=== PATIENT | female | born 1975 | race African-American/Black ===

== ENCOUNTER 2016-12-25 23:22 | Emergency (ER) | payer BC, OTHER ==
[~2016-12-25 23:22] MED LIST: FURO-69 PO; FURO20TA3 PO; NAPR500T3 PO; NORG1TAB6 PO; SERT100T PO
[2016-12-26] MEDS ORDERED: NITROGLYCERIN SUBLINGUAL 0.4 MG BOTTLE OF 25. SL PRN
[2016-12-26 00:12] LABS: BASO # 0.1 x10^3/uL (0.0-0.2); BASO % 1 % (0-3); EOS % 4 % (0-3); HEMATOCRIT 33.1 % (36.0-47.0); HEMOGLOBIN 10.2 g/dL (12.0-15.5); LYMPH # 4.8 x10^3/uL (1.0-4.8); LYMPH % 41 % (24-48); MEAN CORPUSCULAR HEMOGLOBIN 22 pg (25-35); MEAN CORPUSCULAR HGB CONC 31 g/dL (31-37); MEAN CORPUSCULAR VOLUME 72 fL (79-100); MONO % 8 % (0-9); NEUT % 48 % (31-73); PLATELET COUNT 332 x10^3/uL (140-400); RED BLOOD COUNT 4.61 x10^6/uL (3.50-5.40); RED CELL DISTRIBUTION WIDTH 17.6 % (11.5-14.5); WHITE BLOOD COUNT 11.8 x10^3/uL (4.0-11.0)
[2016-12-26] MEDS ORDERED: DIAZEPAM 5 MG TABLET PO ONE (00:15)
[2016-12-26] MEDS ORDERED: ASPIRIN 81 MG TAB.CHEW PO ONE (00:15)
[2016-12-26 00:34] LABS: CALCIUM 8.8 mg/dL (8.5-10.1); CREATININE 0.9 mg/dL (0.6-1.0); GFR 84.3; POTASSIUM 3.8 mmol/L (3.5-5.1)
[2016-12-26 01:10] LABS: PLT ESTIMATE ADEQUATE (ADEQUATE)
[2016-12-26 01:11] LABS: ANISOCYTOSIS SLIGHT; HYPOCHROMIA MOD; MICROCYTOSIS MOD
[2016-12-26 02:42] VITALS: BP 118/57
--- NOTE | 2016-12-26 02:55 | PHYS DOC ---
Past Medical History Past Medical History: Anxiety, Hypertension, Other Additional Past Medical Histor: PCOS Past Surgical History: Cholecystectomy, Hysterectomy Alcohol Use: Occasionally Drug Use: None Adult General Chief Complaint Chief Complaint: CHEST PAIN HPI HPI Patient is a 41 year old female who presents with chest discomfort. Patient reports she lies down this evening, when she started having left-sided chest pressure accompanied by heaviness of left upper extremity and shortness of breath. No clear inciting or mitigating factors. She has not taken anything for symptoms at home. No prior similar episodes. Review of Systems Review of Systems Constitutional: Denies fever or chills Eyes: Denies change in visual acuity or eye pain HENT: Denies nasal congestion or sore throat Respiratory: Shortness of breath. Denies cough Cardiovascular: L side chest pain radiating to LUE GI: Denies abdominal pain, nausea, vomiting, bloody stools or diarrhea : Denies dysuria or hematuria Musculoskeletal: Denies back pain Integument: Denies rash or skin lesions Neurologic: Denies headache, focal weakness or sensory changes Current Medications Current Medications Current Medications Medications (Trade) Dose Ordered Sig/Mike Start Time Stop Time Status Last Admin Dose Admin Aspirin (Children'S Aspirin) 324 mg 1X ONCE 12/26/16 00:15 12/26/16 00:16 DC 12/26/16 00:27 324 MG Diazepam (Valium) 5 mg 1X ONCE 12/26/16 00:15 12/26/16 00:16 DC 12/26/16 00:27 5 MG Nitroglycerin (Nitrostat) 0.4 mg PRN Q5MIN PRN 12/26/16 00:00 12/26/16 03:20 DC 12/26/16 00:28 0.4 MG Allergies Allergies Allergies Coded Allergies Type Severity Reaction Last Updated Verified AL Inhibitors Allergy Severe COUGH AND NUMBNESS IN ARMS 05/10/15 No hydrocodone Allergy Intermediate ITCHING AND NAUSEA 05/10/15 No Physical Exam Physical Exam Constitutional: Well developed, well nourished, no acute distress, non-toxic appearance HENT: Normocephalic, atraumatic, bilateral external ears normal Eyes: EOMI, conjunctiva normal, no discharge Neck: Normal range of motion, no stridor Cardiovascular: Heart rate normal, regular rhythm, no murmur Lungs & Thorax: Bilateral breath sounds clear to auscultation Abdomen: Bowel sounds normal, soft, non-distended, no TTP Skin: Warm, dry, no erythema, no rash Extremities: No obvious deformity, no edema Neurologic: Alert and oriented X 3, no gross deficits noted Psychologic: Affect normal, judgement normal, mood normal Current Patient Data Vital Signs Vital Signs Date Time Temp Pulse Resp B/P Pulse Ox O2 Delivery O2 Flow Rate FiO2 12/26/16 02:42 69 118/57 97 Room Air 12/25/16 23:25 97.7 16 97.7 Lab Values Laboratory Tests Test 12/26/16 00:00 12/26/16 02:08 White Blood Count 11.8x10^3/uL (4.0-11.0) H Red Blood Count 4.61x10^6/uL (3.50-5.40) Hemoglobin 10.2g/dL (12.0-15.5) L Hematocrit 33.1% (36.0-47.0) L Mean Corpuscular Volume 72fL (79-100) L Mean Corpuscular Hemoglobin 22pg (25-35) L Mean Corpuscular Hemoglobin Concent 31g/dL (31-37) Red Cell Distribution Width 17.6% (11.5-14.5) H Platelet Count 332x10^3/uL (140-400) Neutrophils (%) (Auto) 48% (31-73) Lymphocytes (%) (Auto) 41% (24-48) Monocytes (%) (Auto) 8% (0-9) Eosinophils (%) (Auto) 4% (0-3) H Basophils (%) (Auto) 1% (0-3) Neutrophils # (Auto) 5.6x10^3uL (1.8-7.7) Lymphocytes # (Auto) 4.8x10^3/uL (1.0-4.8) Monocytes # (Auto) 0.9x10^3/uL (0.0-1.1) Eosinophils # (Auto) 0.4x10^3/uL (0.0-0.7) Basophils # (Auto) 0.1x10^3/uL (0.0-0.2) Platelet Estimate Adequate (ADEQUATE) Hypochromasia Mod Anisocytosis Slight Microcytosis Mod Sodium Level 142mmol/L (136-145) Potassium Level 3.8mmol/L (3.5-5.1) Chloride Level 107mmol/L (98-107) Carbon Dioxide Level 27mmol/L (21-32) Anion Gap 8 (6-14) Blood Urea Nitrogen 14mg/dL (7-20) Creatinine 0.9mg/dL (0.6-1.0) Estimated GFR (Cockcroft-Gault) 84.3 Glucose Level 120mg/dL (70-99) H Calcium Level 8.8mg/dL (8.5-10.1) Troponin I Quantitative < 0.017ng/mL (0.000-0.055) < 0.017ng/mL (0.000-0.055) Laboratory Tests 12/26/16 00:00 Laboratory Tests 12/26/16 00:00 EKG EKG EKG (my read): sinus rhythm, rate 76, RAD, intervals wnl, no acute ST/T changes Radiology/Procedures Radiology/Procedures CXR (my read): No acute abnormality Course & Med Decision Making Course & Med Decision Making Pertinent Labs and Imaging studies reviewed. (See chart for details) Patient is 41-year-old female who presents with chest pain and shortness of breath. Relatively low suspicion for ACS, would consider process such as as reflux more likely. Will check EKG, chest x-ray, labs to evaluate. Aspirin and nitroglycerin ordered. Labs notable for minimal leukocytosis. EKG and imaging results as above. Troponin within normal limits. Given that patient is low risk per Heart score, after discussion with patient decision was made to obtain secondary troponin level after sometime in ED. This repeat troponin was also within normal limits. Discussed with patient, who is feeling better. Will discharge home with instructions for close follow-up and strict return precautions. Dragon Disclaimer Dragon Disclaimer This electronic medical record was generated, in whole or in part, using a voice recognition dictation system. Departure Departure Impression: Primary Impression: Chest discomfort Disposition: 01 HOME, SELF-CARE Condition: IMPROVED Referrals: REGULO LÓPEZ (PCP) Patient Instructions: Chest Pain (Nonspecific) Additional Instructions: Thank you for allowing us to provide care today in the Emergency Department. Schedule a follow up appointment with your primary care doctor. Return promptly to the Emergency Department if you develop any new or concerning symptoms. SCARLET TABARES MD Dec 26, 2016 02:54
--- NOTE | 2016-12-26 06:29 | EKG ---
[facility] [address] [place] [address] Test Date: 2016-12-25 Test Time: 23:27:01 Pat Name: STACIA DELACRUZ Department: Room: Gender: F Dental Office Manager: : 1975 Requested By: SCARLET TABARES Order Number: [id number] Reading MD: Measurements Intervals [place] Rate: 76 P: 141 HI: 172 QRS: 152 QRSD: 84 T: 168 QT: 372 QTc: 423 Interpretive Statements SUPRAVENTRICULAR RHYTHM ABNORMAL RIGHT AXIS DEVIATION QRS(T) CONTOUR ABNORMALITY CONSISTENT WITH HIGH LATERAL INFARCT AGE UNDETERMINED T ABNORMALITY IN INFERIOR LEADS ABNORMAL ECG RI6.01 No previous ECG available for comparison
--- NOTE | 2016-12-26 07:32 | RAD ---
Indication chest pressure. Shortness of breath. PA and lateral views of the chest were obtained. Comparison is made to an examination 05/01/2015. The heart and pulmonary vessels appear normal. The lungs are clear. There is not been a significant change compared to the previous exam. IMPRESSION: No acute or focal process. No significant change
== END 2016-12-26 03:13 | disposition home or self-care (01) ==
LOC: ER 23:22
DX: R07.89 Other chest pain (principal); R06.02 Shortness of breath; E28.2 Polycystic ovarian syndrome; F41.9 Anxiety disorder, unspecified; I10 Essential (primary) hypertension; Z90.710 Acquired absence of both cervix and uterus; Z90.49 Acquired absence of other specified parts of digestive tract; Z88.5 Allergy status to narcotic agent; Z88.8 Allergy status to other drugs, medicaments and biological substances
CPT/HCPCS: 36415; 71020; 80048; 84484; 85007; 85027; 93005; 99285-25

== ENCOUNTER → 2017-02-03 | Outpatient (CLI) | payer OTHER ==
[~2017-02-03] MED LIST changes: +CONTRAST GIVEN MC PRN; +IOHEXOL 300 MG/ML 75 ML VIAL IV ONE
--- NOTE | 2017-02-03 17:52 | RAD ---
CT of the face with contrast, 02/03/2017: History: Left facial swelling Multidetector CT imaging was performed following an IV bolus injection of iodinated contrast material. No mass or abnormal fluid collection is seen in the cheek regions. The parotid glands are symmetric. A couple of small lymph node type densities are seen within and adjacent to the parotid glands. The submandibular glands show no abnormality. There are small upper cervical and submandibular lymph nodes without evidence of pathologic enlargement. The paranasal sinuses are clear. The orbital contents are unremarkable. No fracture or destructive bony lesion is seen. The tonsils are enlarged in a symmetric pattern. No abnormal fluid collection is seen to suggest abscess. IMPRESSION: 1. No acute facial abnormality is detected. 2. Incidental note is made of symmetric bilateral tonsillar enlargement. PQRS Compliance Statement: One or more of the following individualized dose reduction techniques were utilized for this examination: 1. Automated exposure control 2. Adjustment of the mA and/or kV according to patient size 3. Use of iterative reconstruction technique
== END | disposition home or self-care (01) ==
LOC: CT 10:37
PROVIDERS: ATTEND Family Medicine
DX: J35.1 Hypertrophy of tonsils (principal)
CPT/HCPCS: 70487; Q9967

== ENCOUNTER 2017-07-12 06:12 | Inpatient (IN) | payer OTHER ==
[~2017-07-12] VITALS: Ht 163.8 cm; Wt 122.0 kg
[~2017-07-12 06:12] MED LIST changes: -CONTRAST GIVEN MC PRN; -IOHEXOL 300 MG/ML 75 ML VIAL IV ONE; -NAPR500T3 PO; +NAPR500T4 PO
--- NOTE | 2017-07-12 06:17 | PHYS DOC ---
Past Medical History Past Medical History: Anxiety, Hypertension, Other Additional Past Medical Histor: PCOS Past Surgical History: Cholecystectomy, Hysterectomy Alcohol Use: Occasionally Drug Use: None Adult General Chief Complaint Chief Complaint: Neck Pain HPI HPI Patient is a 41 year old -[place] female who presents with left sided chest and shoulder pain. She states it started yesterday is been constant she's been taking 800 mg of Motrin at home and took 2 tablets this morning prior to arrival. She states the pain is constant nothing makes it better or worse. She states moving her shoulder does not change her pain at all. She denies any shortness of breath associated with this. She points to her left anterior chest wall states the pains there radiates into her shoulder and then she states up into her neck little bit. She denies any nausea, shortness of breath. She denies any history of coronary disease. She denies any family history of coronary disease in her mom or dad. She denies tobacco abuse. She states she has a past medical history of dyslipidemia is on a medicine for this. Review of Systems Review of Systems Constitutional: Denies fever or chills [] Eyes: Denies change in visual acuity, redness, or eye pain [] HENT: Denies nasal congestion or sore throat [] Respiratory: Denies cough or shortness of breath [] Cardiovascular: No additional information not addressed in HPI [] GI: Denies abdominal pain, nausea, vomiting, bloody stools or diarrhea [] : Denies dysuria or hematuria [] Musculoskeletal: Denies back pain or joint pain [] Integument: Denies rash or skin lesions [] Neurologic: Denies headache, focal weakness or sensory changes [] Endocrine: Denies polyuria or polydipsia [] Current Medications Current Medications Current Medications Medications (Trade) Dose Ordered Sig/[facility] Start Time Stop Time Status Last Admin Dose Admin Aspirin (Nikita Aspirin) 325 mg 1X ONCE 07/12/17 08:30 07/12/17 08:31 DC 07/12/17 08:28 325 MG Diazepam (Valium) 2.5 mg 1X ONCE 07/12/17 08:30 07/12/17 08:33 DC 07/12/17 08:30 2.5 MG Nitroglycerin (Nitrostat) 0.4 mg PRN Q5MIN PRN 07/12/17 06:30 07/13/17 06:29 Allergies Allergies Allergies Coded Allergies Type Severity Reaction Last Updated Verified AL Inhibitors Allergy Severe COUGH AND NUMBNESS IN ARMS 05/10/15 No hydrocodone Allergy Intermediate ITCHING AND NAUSEA 05/10/15 No Physical Exam Physical Exam Constitutional: Well developed, well nourished, no acute distress, non-toxic appearance. [] HENT: Normocephalic, atraumatic, bilateral external ears normal, oropharynx moist, no oral exudates, nose normal. [] Eyes: PERRLA, EOMI, conjunctiva normal, no discharge. [] Neck: Normal range of motion, no tenderness, supple, no stridor. [] Cardiovascular:Heart rate regular rhythm, no murmur [] Lungs & Thorax: Bilateral breath sounds clear to auscultation [] Abdomen: Bowel sounds normal, soft, no tenderness, no masses, no pulsatile masses. [] Skin: Warm, dry, no erythema, no rash. [] Back: No tenderness, no CVA tenderness. [] Extremities: No tenderness, no cyanosis, no clubbing, ROM intact, no edema. [] Neurologic: Alert and oriented X 3, normal motor function, normal sensory function, no focal deficits noted. [] Psychologic: Affect normal, judgement normal, mood normal. [] Current Patient Data Vital Signs Vital Signs Date Time Temp Pulse Resp B/P (MAP) Pulse Ox O2 Delivery O2 Flow Rate FiO2 07/12/17 08:03 67 19 152/91 (111) 98 Room Air 07/12/17 06:46 97.7 97.7 Lab Values Laboratory Tests Test 07/12/17 06:41 07/12/17 07:10 07/12/17 07:25 White Blood Count 11.0 x10^3/uL (4.0-11.0) Red Blood Count 4.81 x10^6/uL (3.50-5.40) Hemoglobin 11.4 g/dL (12.0-15.5) L Hematocrit 35.9 % (36.0-47.0) L Mean Corpuscular Volume 75 fL (79-100) L Mean Corpuscular Hemoglobin 24 pg (25-35) L Mean Corpuscular Hemoglobin Concent 32 g/dL (31-37) Red Cell Distribution Width 16.3 % (11.5-14.5) H Platelet Count 360 x10^3/uL (140-400) Neutrophils (%) (Auto) 60 % (31-73) Lymphocytes (%) (Auto) 28 % (24-48) Monocytes (%) (Auto) 7 % (0-9) Eosinophils (%) (Auto) 4 % (0-3) H Basophils (%) (Auto) 1 % (0-3) Neutrophils # (Auto) 6.6 x10^3uL (1.8-7.7) Lymphocytes # (Auto) 3.1 x10^3/uL (1.0-4.8) Monocytes # (Auto) 0.8 x10^3/uL (0.0-1.1) Eosinophils # (Auto) 0.4 x10^3/uL (0.0-0.7) Basophils # (Auto) 0.1 x10^3/uL (0.0-0.2) Urine Collection Type Unknown Urine Color Yellow Urine Clarity Clear Urine pH 6.5 Urine Specific [place] >=1.030 Urine Protein Negative mg/dL (NEG-TRACE) Urine Glucose (UA) Negative mg/dL (NEG) Urine Ketones (Stick) Negative mg/dL (NEG) Urine Blood Negative (NEG) Urine Nitrite Negative (NEG) Urine Bilirubin Negative (NEG) Urine Urobilinogen Dipstick 1.0 mg/dL (0.2 mg/dL) Urine Leukocyte Esterase Negative (NEG) Urine RBC 0 /HPF (0-2) Urine WBC Occ /HPF (0-4) Urine Squamous Epithelial Cells Mod /LPF Urine Bacteria 0 /HPF (0-FEW) Urine Mucus Mod /LPF Urine Opiates Screen Neg (NEG) Urine Methadone Screen Neg (NEG) Urine Barbiturates Neg (NEG) Urine Phencyclidine Screen Neg (NEG) Urine Amphetamine/Methamphetamine Neg (NEG) Urine Benzodiazepines Screen Neg (NEG) Urine Cocaine Screen Neg (NEG) Urine Cannabinoids Screen Neg (NEG) Urine Ethyl Alcohol Neg (NEG) Prothrombin Time 12.5 SEC (11.7-14.0) Prothrombin Time INR 1.0 (0.8-1.1) Sodium Level 142 mmol/L (136-145) Potassium Level 3.9 mmol/L (3.5-5.1) Chloride Level 106 mmol/L (98-107) Carbon Dioxide Level 27 mmol/L (21-32) Anion Gap 9 (6-14) Blood Urea Nitrogen 15 mg/dL (7-20) Creatinine 0.8 mg/dL (0.6-1.0) Estimated GFR (Cockcroft-Gault) 96.6 Glucose Level 122 mg/dL (70-99) H Calcium Level 8.7 mg/dL (8.5-10.1) Magnesium Level 2.0 mg/dL (1.8-2.4) Total Bilirubin 0.1 mg/dL (0.2-1.0) L Direct Bilirubin 0.0 mg/dL (0.0-0.2) Aspartate Amino Transferase (AST) 11 U/L (15-37) L Alanine Aminotransferase (ALT) 16 U/L (14-59) Alkaline Phosphatase 99 U/L (46-116) Creatine Kinase 92 U/L (26-192) Creatine Kinase MB (Mass) 0.7 ng/mL (0.0-3.6) Creatine Kinase MB Relative Index 0.8 % (0-4) Troponin I Quantitative < 0.017 ng/mL (0.000-0.055) [id number] Natriuretic Peptide 65 pg/mL (0-124) Total Protein 7.5 g/dL (6.4-8.2) Albumin 3.1 g/dL (3.4-5.0) L Lipase 110 U/L (73-393) Serum Test, Qualitative Negative (NEG) Laboratory Tests 07/12/17 06:41 Laboratory Tests 07/12/17 07:25 EKG EKG EKG shows sinus rhythm with a rate of [address] elevations, T-wave inversions noted in lead 3, normal axis, QTC 437 will sinus, as interpreted by me. Radiology/Procedures Radiology/Procedures [facility] [address] [place] [address] IMAGING REPORT Signed PATIENT: STACIA DELACRUZ ACCOUNT: [id number] : 1975 LOCATION: ER AGE: 41 SEX: F EXAM STATUS: REG ER ORD. PHYSICIAN: ALY COHEN MD REASON: chest pain-NOT READY AT 6:29 PROCEDURE: PORTABLE CHEST 1V Portable chest, 07/12/2017: History: Chest pain Comparison is made to a study from 12/26/2016. The heart is at the upper limits of normal in size. The pulmonary vascularity is normal. No pulmonary infiltrates are seen. There is no evidence of pleural fluid. IMPRESSION: No acute cardiopulmonary abnormality is detected. DICTATED and SIGNED BY: RAMA BENNETT MD DATE: 07/12/17 0731 CC: MACKENZIE LU MD; ALY COHEN MD ~ Impressions: Chest pain Dyslipidemia Course & Med Decision Making Course & Med Decision Making Pertinent Labs and Imaging studies reviewed. (See chart for details) EKG has T-wave inversions in lead 3, previous EKG had T-wave inversions in lead 2 and aVL which are not there at this time. Patient does have dyslipidemia. Will admit for chest pain rule out and likely a stress test but will defer to cardiology. Patient has received full dose aspirin. She is agreeable plans in stable condition this time. We will try Valium 2.5 mg IV 1 to this isn't really some of her discomfort in her left shoulder. 325mg aspirin has been ordered. Patient's being admitted to Dr. Pitts with cardiology consultation in stable condition this time. Interim orders have been written. Dragon Disclaimer Dragon Disclaimer This electronic medical record was generated, in whole or in part, using a voice recognition dictation system. Departure Departure Impression: Primary Impression: Chest pain Disposition: 09 ADMITTED INPATIENT Admitting Physician: Other Condition: STABLE Referrals: REGULO LÓPEZ (PCP) Problem Qualifiers Primary Impression: Chest pain Chest pain type: unspecified Qualified Codes: R07.9 - Chest pain, unspecified ALY COHEN MD Jul 12, 2017 06:17
[2017-07-12] MEDS ORDERED: NITROGLYCERIN SUBLINGUAL 0.4 MG BOTTLE OF 25. SL PRN (06:30)
[2017-07-12 06:58] LABS: BASO # 0.1 x10^3/uL (0.0-0.2); BASO % 1 % (0-3); EOS % 4 % (0-3); HEMATOCRIT 35.9 % (36.0-47.0); HEMOGLOBIN 11.4 g/dL (12.0-15.5); LYMPH # 3.1 x10^3/uL (1.0-4.8); LYMPH % 28 % (24-48); MEAN CORPUSCULAR HEMOGLOBIN 24 pg (25-35); MEAN CORPUSCULAR HGB CONC 32 g/dL (31-37); MEAN CORPUSCULAR VOLUME 75 fL (79-100); MONO % 7 % (0-9); NEUT % 60 % (31-73); PLATELET COUNT 360 x10^3/uL (140-400); RED BLOOD COUNT 4.81 x10^6/uL (3.50-5.40); RED CELL DISTRIBUTION WIDTH 16.3 % (11.5-14.5)
--- NOTE | 2017-07-12 07:34 | RAD ---
Portable chest, 07/12/2017: History: Chest pain Comparison is made to a study from 12/26/2016. The heart is at the upper limits of normal in size. The pulmonary vascularity is normal. No pulmonary infiltrates are seen. There is no evidence of pleural fluid. IMPRESSION: No acute cardiopulmonary abnormality is detected.
[2017-07-12 08:10] LABS: BILIRUBIN,URINE NEGATIVE (NEG); GLUCOSE,URINE NEGATIVE (NEG); NITRITE,URINE NEGATIVE (NEG); PH,URINE 6.5; PROTEIN,URINE NEGATIVE (NEG-TRACE)
[2017-07-12 08:15] LABS: ANION GAP 9 (6-14); BLOOD UREA NITROGEN 15 mg/dL (7-20); CALCIUM 8.7 mg/dL (8.5-10.1); CARBON DIOXIDE 27 mmol/L (21-32); CHLORIDE 106 mmol/L (98-107); CREATININE 0.8 mg/dL (0.6-1.0); GFR 96.6; GLUCOSE 122 mg/dL (70-99); POTASSIUM 3.9 mmol/L (3.5-5.1); SODIUM 142 mmol/L (136-145)
[2017-07-12 08:16] LABS: BARBITURATES NEG (NEG); BENZODIAZEPINES NEG (NEG); CANNABINOIDS NEG (NEG); COCAINE NEG (NEG); METHADONE NEG (NEG); OPIATES NEG (NEG); PHENCYCLIDINE NEG (NEG)
[2017-07-12 08:21] LABS: ALBUMIN 3.1 g/dL (3.4-5.0); ALK PHOS 99 U/L (46-116); ALT (SGPT) 16 U/L (14-59); AST (SGOT) 11 U/L (15-37); TOTAL BILIRUBIN 0.1 mg/dL (0.2-1.0); TOTAL PROTEIN 7.5 g/dL (6.4-8.2)
[2017-07-12] MEDS ORDERED: ASPIRIN 325 MG TABLET PO ONE (08:30)
[2017-07-12 08:31] LABS: CKMB MASS 0.7 ng/mL (0.0-3.6)
[2017-07-12 08:32] LABS: PROTHROMBIN TIME PATIENT 12.5 SEC (11.7-14.0)
[2017-07-12 08:36] LABS: BACTERIA,URINE 0 /HPF (0-FEW); RBC,URINE 0 /HPF (0-2); SQUAMOUS EPITHELIAL CELL,UR MOD /LPF; WBC,URINE OCC /HPF (0-4)
[2017-07-12 08:39] LABS: NEG OBC SER NEG; POS OBC SER POS
[2017-07-12] MEDS ORDERED: MORPHINE SULFATE 2 MG/ML DISP.SYRIN. IV PRN (09:00)
[2017-07-12] MEDS ORDERED: ONDANSETRON PF 4 MG/2 ML VIAL. IV PRN (09:00)
[2017-07-12 09:30] VITALS: BP 152/91
[2017-07-12] MEDS ORDERED: SPIR50TA2 PO (09:45)
[2017-07-12] MEDS ORDERED: SUMA50TA4 PO (09:45)
[2017-07-12] MEDS ORDERED: METF500T4 PO (09:45)
[2017-07-12] MEDS ORDERED: OMEP40CA5 PO (09:45)
[2017-07-12] MEDS ORDERED: FLUT16SP NAS (09:45)
[2017-07-12] MEDS ORDERED: GABA300C8 PO (09:45)
[2017-07-12] MEDS ORDERED: DICL25TA PO (09:45)
[2017-07-12] MEDS ORDERED: AMLO5TAB2 PO (09:45)
[2017-07-12] MEDS ORDERED: TOPI50TA8 PO (09:45)
[2017-07-12] MEDS ORDERED: SIMV20TA3 PO (09:45)
[2017-07-12 09:48] LABS: DIRECT BILIRUBIN < 0.1 mg/dL (0.0-0.2)
[2017-07-12] MEDS ORDERED: diphenhydrAMINE HCL 25 MG CAPSULE PO PRN (10:15)
[2017-07-12] MEDS ORDERED: INFLUENZA VAX SCREEN BY RX. MC PRN (10:45)
[2017-07-12 11:00] VITALS: BP 135/72
[2017-07-12] MEDS ORDERED: SUMAtriptan SUCCINATE 25 MG TABLET PO PRN (11:00)
[2017-07-12] MEDS ORDERED: FLU VACC QS2017-18 (36MOS+)/PF 0.5 ML SYRINGE. VAX IM ONE (11:00)
[2017-07-12] MEDS: ENOXAPARIN 40 MG/0.4 ML SYRINGE. SQ SCH ×2 (11:00→20:08)
--- NOTE | 2017-07-12 11:25 | PDOC2 ---
CARDIOLOGY CONSULT NOTE CHEIF COMPLAINT: Chest pain Problems: HPI: 41 y.o female with pmhx as noted below presenting to the hospital with chest pain. She was seen several months ago in ER with complaints of pain. No acute pathology and discharged home. At baseline she is quite sedentary. No chest pain or dypsnea. Last night had some sharp left sided pain. This persisted and presented to ER. Today has pain with movement. No other associated factors. PMHX: HTN PCOS DLP SOCHX: No alcohol, tob or illicit drug use FAMHX: No early cAD CURRENT MEDS: Current Medications Medications (Trade) Dose Ordered Sig/Mike Start Time Stop Time Status Last Admin Dose Admin Amlodipine Besylate (Norvasc) 5 mg DAILY 07/12/17 11:00 Aspirin (Nikita Aspirin) 325 mg 1X ONCE 07/12/17 08:30 07/12/17 08:31 DC 07/12/17 08:28 325 MG Atorvastatin Calcium (Lipitor) 10 mg QHS 07/12/17 21:00 Diazepam (Valium) 2.5 mg 1X ONCE 07/12/17 08:30 07/12/17 08:33 DC 07/12/17 08:30 2.5 MG Diphenhydramine HCl (Benadryl) 25 mg PRN Q4HRS PRN 07/12/17 10:15 07/12/17 10:14 25 MG Enoxaparin Sodium (Lovenox 40mg Syringe) 40 mg BID 07/12/17 11:00 Fluticasone Propionate (Flonase) 2 spray DAILY 07/12/17 11:00 Gabapentin (Neurontin) 300 mg TID 07/12/17 14:00 Indomethacin (Indocin) 50 mg TID 07/12/17 14:00 Influenza Virus Vaccine Quadrival (Fluarix Quad [id number] Syringe) 0.5 ml ONCE ONCE 07/12/17 11:00 07/12/17 11:01 DC Info (Do NOT chart on this placeholder) 1 each PRN 1X PRN 07/12/17 10:45 UNV Insulin Aspart (NovoLOG) 0-12 UNITS QIDACHS 07/12/17 11:30 Morphine Sulfate 2 mg PRN Q2HR PRN 07/12/17 09:00 07/13/17 08:59 07/12/17 09:55 2 MG Nitroglycerin (Nitrostat) 0.4 mg PRN Q5MIN PRN 07/12/17 06:30 07/13/17 06:29 Ondansetron HCl (Zofran) 4 mg PRN Q8HRS PRN 07/12/17 09:00 07/13/17 08:59 07/12/17 10:41 4 MG Pantoprazole Sodium (Protonix) 40 mg DAILYAC 07/12/17 11:00 Spironolactone (Aldactone) 50 mg BID 07/12/17 11:00 Sumatriptan Succinate (Imitrex) 50 mg PRN Q2HR PRN 07/12/17 11:00 Topiramate (Topamax) 50 mg BID 07/12/17 11:00 ALLERGIES: Allergies Coded Allergies Type Severity Reaction Last Updated Verified AL Inhibitors Allergy Severe COUGH AND NUMBNESS IN ARMS 05/10/15 No hydrocodone Allergy Intermediate ITCHING AND NAUSEA 05/10/15 No ROS: Negative for 07/18 systems reviewed unless otherwise noted above in HPI. PHYSICAL EXAM: Vital Signs: Vital Signs Date Time Temp Pulse Resp B/P (MAP) Pulse Ox O2 Delivery O2 Flow Rate FiO2 07/12/17 10:59 Room Air 07/12/17 09:55 16 98 07/12/17 09:30 97.7 67 152/91 (111) 97.7 Physical Exam: GEN.: No apparent distress. Alert and oriented. HEENT: Head is normocephalic, atraumatic NECK: Supple. LUNGS: Clear to auscultation. HEART: RRR, S1, S2 present. Peripheral pulses intact ABDOMEN: Soft, nontender. Positive bowel sounds. EXTREMITIES: Without any cyanosis. NEUROLOGIC: Normal speech, normal tone PSYCHIATRIC: Normal affect, normal mood. SKIN: No ulcerations DIAGNOSTIC TESTING: Trop negative EKG unremarkable. Lab Laboratory Tests Test 07/12/17 06:41 07/12/17 07:10 07/12/17 07:25 White Blood Count 11.0 x10^3/uL (4.0-11.0) Red Blood Count 4.81 x10^6/uL (3.50-5.40) Hemoglobin 11.4 g/dL (12.0-15.5) L Hematocrit 35.9 % (36.0-47.0) L Mean Corpuscular Volume 75 fL (79-100) L Mean Corpuscular Hemoglobin 24 pg (25-35) L Mean Corpuscular Hemoglobin Concent 32 g/dL (31-37) Red Cell Distribution Width 16.3 % (11.5-14.5) H Platelet Count 360 x10^3/uL (140-400) Neutrophils (%) (Auto) 60 % (31-73) Lymphocytes (%) (Auto) 28 % (24-48) Monocytes (%) (Auto) 7 % (0-9) Eosinophils (%) (Auto) 4 % (0-3) H Basophils (%) (Auto) 1 % (0-3) Neutrophils # (Auto) 6.6 x10^3uL (1.8-7.7) Lymphocytes # (Auto) 3.1 x10^3/uL (1.0-4.8) Monocytes # (Auto) 0.8 x10^3/uL (0.0-1.1) Eosinophils # (Auto) 0.4 x10^3/uL (0.0-0.7) Basophils # (Auto) 0.1 x10^3/uL (0.0-0.2) Urine Collection Type Unknown Urine Color Yellow Urine Clarity Clear Urine pH 6.5 Urine Specific [place] >=1.030 Urine Protein Negative mg/dL (NEG-TRACE) Urine Glucose (UA) Negative mg/dL (NEG) Urine Ketones (Stick) Negative mg/dL (NEG) Urine Blood Negative (NEG) Urine Nitrite Negative (NEG) Urine Bilirubin Negative (NEG) Urine Urobilinogen Dipstick 1.0 mg/dL (0.2 mg/dL) Urine Leukocyte Esterase Negative (NEG) Urine RBC 0 /HPF (0-2) Urine WBC Occ /HPF (0-4) Urine Squamous Epithelial Cells Mod /LPF Urine Bacteria 0 /HPF (0-FEW) Urine Mucus Mod /LPF Urine Opiates Screen Neg (NEG) Urine Methadone Screen Neg (NEG) Urine Barbiturates Neg (NEG) Urine Phencyclidine Screen Neg (NEG) Urine Amphetamine/Methamphetamine Neg (NEG) Urine Benzodiazepines Screen Neg (NEG) Urine Cocaine Screen Neg (NEG) Urine Cannabinoids Screen Neg (NEG) Urine Ethyl Alcohol Neg (NEG) Prothrombin Time 12.5 SEC (11.7-14.0) Prothromb Time International Ratio 1.0 (0.8-1.1) Sodium Level 142 mmol/L (136-145) Potassium Level 3.9 mmol/L (3.5-5.1) Chloride Level 106 mmol/L (98-107) Carbon Dioxide Level 27 mmol/L (21-32) Anion Gap 9 (6-14) Blood Urea Nitrogen 15 mg/dL (7-20) Creatinine 0.8 mg/dL (0.6-1.0) Estimated GFR (Cockcroft-Gault) 96.6 Glucose Level 122 mg/dL (70-99) H Calcium Level 8.7 mg/dL (8.5-10.1) Total Bilirubin 0.1 mg/dL (0.2-1.0) L Direct Bilirubin < 0.1 mg/dL (0.0-0.2) Aspartate Amino Transf (AST/SGOT) 11 U/L (15-37) L Alkaline Phosphatase 99 U/L (46-116) Creatine Kinase 92 U/L (26-192) Creatine Kinase MB (Mass) 0.7 ng/mL (0.0-3.6) Creatine Kinase MB Relative Index 0.8 % (0-4) Total Protein 7.5 g/dL (6.4-8.2) Albumin 3.1 g/dL (3.4-5.0) L Lipase 110 U/L (73-393) Serum Test, Qualitative Negative (NEG) ASSESSMENT: 1. Most likely non-cardiac chest but given multiple risk factors and 2nd ER visit with CP, will plan for MPI. PLAN: 1. Plan for MPI. Continue home meds for HTN MATTHEW SPENCER MD Jul 12, 2017 11:25
[2017-07-12] MEDS: INSULIN ASPART 300 UNITS/3 ML INSULN.PEN SQ SCH ×3 (11:30→21:00)
--- NOTE | 2017-07-12 11:58 | HP ---
ADMIT DATE: 07/12/2017 CHIEF COMPLAINT: Chest pain. HISTORY OF PRESENT ILLNESS AND HOSPITAL COURSE: This patient is a 41-year-old obese -N[place] female, admitted with a 2-day history of chest/left shoulder pain. She states that the day before admission, she had an episode of chest pain that lasted less than 5 minutes. This was not associated with nausea, vomiting or shortness of breath. The next day on day of admission, the patient had an episode of left shoulder pain, which she describes as a pressure. She does not remember any injury to the left shoulder or have any repetitive activity recently with her left shoulder. She states that the pain lasted the whole day, was not associated with nausea, vomiting, diaphoresis or shortness of breath. She states movement did not improve her pain. PAST MEDICAL HISTORY: Significant for asthma, hypertension, morbid obesity, polycystic ovarian disease. Prediabetes. High cholesterol. Gastroesophageal reflux disease. Migraine headaches. Carpal tunnel release. PAST SURGICAL HISTORY: Significant for cholecystectomy, hysterectomy. GYNECOLOGIC HISTORY: She is a by vaginal delivery. FAMILY HISTORY: Significant for hypertension in her father who is alive. Her mother who is with cerebral aneurysm. She has a brother with diabetes. She has multiple aunts and uncles with diabetes. SOCIAL HISTORY: Reveals that the patient who is not a smoker. She does not use illegal drugs. She lives with her brother, her son and her son's father. She works as a customer solutions coordinator. She does not use alcohol. MEDICATIONS: 1. Zocor 20 mg daily. 2. Aldactone 50 mg 2 times a day. 3. Omeprazole 40 mg daily. 4. Metformin 500 mg b.i.d. 5. Imitrex 50 mg p.r.n. migraine. 6. Topamax 50 mg 2 times a day for migraines. 7. Amlodipine 5 mg daily. 8. Gabapentin 300 mg b.i.d. 9. Diclofenac 25 mg 4 times a day. ALLERGIES: THE PATIENT EXHIBITS ALLERGIES TO TRAMADOL, WHICH CAUSES ITCHING; CODEINE, WHICH CAUSES ITCHING; AL INHIBITOR CAUSES NUMBNESS. REVIEW OF SYSTEMS: The patient denies any recent nausea, vomiting, diarrhea, constipation, cough, congestion, shortness of breath or diaphoresis. PHYSICAL EXAMINATION: GENERAL: This is a morbidly obese -N[place] female in no apparent distress on my exam. She is alert, oriented x 3. HEENT: Benign. NECK: Supple, without JVD or bruit. CARDIAC: Regular rate and rhythm. LUNGS: Clear. ABDOMEN: Soft and nontender. EXTREMITIES: Exhibit 2+ pulses without significant edema. NEUROLOGIC: Intact. ASSESSMENT: 1. Left shoulder pain consistent with myofascial pain/chest wall pain. 2. Atypical chest pain, cannot rule out underlying cardiac disease with multiple risk factors including prediabetes, obesity, high cholesterol, hypertension. 3. History of gastroesophageal reflux disease. PLAN: To have Cardiology consult and rule out PA and proceed with stress testing if indicated. Monitor the patient's symptoms and treat for musculoskeletal chest wall pain and manage chronic medical disease. ALLYSON OSORIO MD DR: KAYLEN/makayla JOB#: [id number] / [id number]
--- NOTE | 2017-07-12 12:29 | EKG ---
[facility] [address] [place] [address] Test Date: 2017-07-12 Test Time: 06:32:47 Pat Name: STACIA DELACRUZ Department: Room: [facility] Gender: F Biology Adjunct Instructor: : [id number] Requested By: ALY COHEN Order Number: [id number] Reading MD: Tal Workman Measurements Intervals [place] Rate: 69 P: 31 MI: 202 QRS: 37 QRSD: 82 T: 17 QT: 406 QTc: 437 Interpretive Statements SINUS RHYTHM NONSPECIFIC ST-T WAVE CHANGES. RI6.01 Electronically Signed On 07-30-2017 17:17:27 CDT by Tal Workman
[2017-07-12] MEDS: FLUTICASONE 50MCG/NASAL SPRAY 16GM BOTTLE. NS SCH (13:03)
[2017-07-12] MEDS: GABAPENTIN 300 MG CAPSULE. PO SCH ×2 (13:05→20:04)
[2017-07-12] MEDS: INDOMETHACIN 25 MG CAPSULE. PO SCH ×2 (13:05→20:06)
[2017-07-12] MEDS: TOPIRAMATE 25 MG TABLET. PO SCH ×2 (13:05→20:08)
[2017-07-12] MEDS: SPIRONOLACTONE 25 MG TABLET PO SCH ×2 (13:05→20:05)
[2017-07-12] MEDS: amLODIPine BESYLATE 5 MG TABLET PO SCH (13:06)
[2017-07-12] MEDS: PANTOPRAZOLE 40 MG TABLET.DR. PO SCH (13:06)
[2017-07-12 15:11] VITALS: BP 103/56
[2017-07-12 19:00] VITALS: BP 104/53
[2017-07-12] MEDS ORDERED: ATORVASTATIN CALCIUM 10 MG TABLET. PO SCH (21:00)
[2017-07-12 23:42] VITALS: BP 132/70
[2017-07-13] VITALS (15 sets, daily range): BP systolic 94–140; BP diastolic 55–76
[2017-07-13 04:34] LABS: BASO % 0 % (0-3); EOS % 3 % (0-3); HEMATOCRIT 35.2 % (36.0-47.0); HEMOGLOBIN 11.1 g/dL (12.0-15.5); LYMPH # 2.4 x10^3/uL (1.0-4.8); LYMPH % 23 % (24-48); MEAN CORPUSCULAR HEMOGLOBIN 24 pg (25-35); MEAN CORPUSCULAR HGB CONC 32 g/dL (31-37); MEAN CORPUSCULAR VOLUME 76 fL (79-100); MONO % 7 % (0-9); NEUT % 67 % (31-73); PLATELET COUNT 342 x10^3/uL (140-400); RED BLOOD COUNT 4.66 x10^6/uL (3.50-5.40); RED CELL DISTRIBUTION WIDTH 16.6 % (11.5-14.5); WHITE BLOOD COUNT 10.7 x10^3/uL (4.0-11.0)
[2017-07-13 05:05] LABS: ALBUMIN 2.7 g/dL (3.4-5.0); ALBUMIN/GLOBULIN RATIO 0.6 (1.0-1.7); CREATININE 0.9 mg/dL (0.6-1.0); GFR 84.3; TOTAL BILIRUBIN 0.2 mg/dL (0.2-1.0); TOTAL PROTEIN 7.1 g/dL (6.4-8.2)
[2017-07-13] MEDS: INSULIN ASPART 300 UNITS/3 ML INSULN.PEN SQ SCH ×3 (07:30→11:35)
--- NOTE | 2017-07-13 08:09 | PDOC ---
SUBJECTIVE Subjective Pt states that she is still having left sided chest pain. Feels a little bit of pressure relief when she stretches her shoulder. No other complaints at this time or questions. OBJECTIVE Vital Signs Vital Signs Date Time Temp Pulse Resp B/P (MAP) Pulse Ox O2 Delivery O2 Flow Rate FiO2 07/13/17 07:00 97.5 71 18 94/55 (68) 98 Room Air 97.5 07/13/17 03:00 97.6 85 18 113/71 (85) 97 BiPAP/CPAP 97.6 07/12/17 23:42 98.3 84 18 132/70 (90) 98 Room Air 98.3 07/12/17 20:00 Room Air 07/12/17 19:00 97.9 74 18 104/53 (70) 96 Room Air 97.9 07/12/17 15:11 97.6 71 18 103/56 (72) 99 97.6 07/12/17 13:06 67 152/91 07/12/17 11:51 98 Room Air 07/12/17 11:00 97.6 95 18 135/72 (93) 98 97.6 07/12/17 10:59 Room Air 07/12/17 09:55 16 98 Room Air 07/12/17 09:30 97.7 67 152/91 (111) 98 97.7 PHYSICAL EXAM Physical Exam GEN: NAD, AOx3 HEENT: MMM, EOMI, no scleral icterus/injection Cardiac: RRR, no M/R/G Lungs: CTAB, regular breathing rate and effort Abd: non distended, NTTP Ext: no erythema/edema LE bilaterally Neuro: CN2-12 GI Skin: normal, no rashes or skin lesions noted ASSESSMENT/PLAN Assessment/Plan Pt is a 41yo AAF admitted for chest pain 1)Chest pain- normal troponin, normal EKG. Cardiology following and is planning on stress test this morning. Discussed D/C later today if stress test normal with likely myofascial/chest wall pain 2)HLD- pt normally on Simvastatin 20mg, currently receiving Atorvastatin 10mg 3)Prediabetes- repeat HbA1C pending, but possible pt is actually diabetic as her last HbA1C was 6.3 on Metformin (normally takes Metformin for PCOS) 4)PCOS- Metformin currently being held 5)HTN- well controlled with Spironolactone 50mg BID and Norvasc 5mg 6)GERD- pt continued on Pantoprazole 40mg 7)Anemia- Hb improved from last labs drawn in clinic, CTM 8)OBDULIA Problems: COMMENT Lab Laboratory Tests Test 07/12/17 11:43 07/12/17 14:45 07/12/17 16:51 07/12/17 20:15 Glucose (Fingerstick) 94 mg/dL (70-99) 93 mg/dL (70-99) 148 mg/dL (70-99) Troponin I Quantitative < 0.017 ng/mL (0.000-0.055) Test 07/12/17 20:45 07/12/17 21:23 07/13/17 03:45 Troponin I Quantitative < 0.017 ng/mL (0.000-0.055) Glucose (Fingerstick) 51 mg/dL (70-99) White Blood Count 10.7 x10^3/uL (4.0-11.0) Red Blood Count 4.66 x10^6/uL (3.50-5.40) Hemoglobin 11.1 g/dL (12.0-15.5) Hematocrit 35.2 % (36.0-47.0) Mean Corpuscular Volume 76 fL (79-100) Mean Corpuscular Hemoglobin 24 pg (25-35) Mean Corpuscular Hemoglobin Concent 32 g/dL (31-37) Red Cell Distribution Width 16.6 % (11.5-14.5) Platelet Count 342 x10^3/uL (140-400) Neutrophils (%) (Auto) 67 % (31-73) Lymphocytes (%) (Auto) 23 % (24-48) Monocytes (%) (Auto) 7 % (0-9) Eosinophils (%) (Auto) 3 % (0-3) Basophils (%) (Auto) 0 % (0-3) Neutrophils # (Auto) 7.2 x10^3uL (1.8-7.7) Lymphocytes # (Auto) 2.4 x10^3/uL (1.0-4.8) Monocytes # (Auto) 0.8 x10^3/uL (0.0-1.1) Eosinophils # (Auto) 0.3 x10^3/uL (0.0-0.7) Basophils # (Auto) 0.0 x10^3/uL (0.0-0.2) Sodium Level 140 mmol/L (136-145) Potassium Level 4.0 mmol/L (3.5-5.1) Chloride Level 106 mmol/L (98-107) Carbon Dioxide Level 26 mmol/L (21-32) Anion Gap 8 (6-14) Blood Urea Nitrogen 13 mg/dL (7-20) Creatinine 0.9 mg/dL (0.6-1.0) Estimated GFR (Cockcroft-Gault) 84.3 BUN/Creatinine Ratio 14 (6-20) Glucose Level 125 mg/dL (70-99) Calcium Level 8.0 mg/dL (8.5-10.1) Total Bilirubin 0.2 mg/dL (0.2-1.0) Aspartate Amino Transf (AST/SGOT) 12 U/L (15-37) Alanine Aminotransferase (ALT/SGPT) 23 U/L (14-59) Alkaline Phosphatase 97 U/L (46-116) Total Protein 7.1 g/dL (6.4-8.2) Albumin 2.7 g/dL (3.4-5.0) Albumin/Globulin Ratio 0.6 (1.0-1.7) MACKENZIE LU MD Jul 13, 2017 08:08
[2017-07-13] MEDS: INDOMETHACIN 25 MG CAPSULE. PO SCH ×3 (08:15→10:39)
[2017-07-13] MEDS: ENOXAPARIN 40 MG/0.4 ML SYRINGE. SQ SCH (09:00)
[2017-07-13] MEDS: GABAPENTIN 300 MG CAPSULE. PO SCH ×2 (09:00→10:37)
[2017-07-13] MEDS ORDERED: REGADENOSON 0.4 MG/5 ML DISP.SYRIN. IV ONE (09:30)
[2017-07-13] MEDS: PANTOPRAZOLE 40 MG TABLET.DR. PO SCH (10:37)
[2017-07-13] MEDS: FLUTICASONE 50MCG/NASAL SPRAY 16GM BOTTLE. NS SCH (10:37)
[2017-07-13] MEDS: TOPIRAMATE 25 MG TABLET. PO SCH (10:37)
[2017-07-13] MEDS: SPIRONOLACTONE 25 MG TABLET PO SCH (10:39)
[2017-07-13] MEDS: amLODIPine BESYLATE 5 MG TABLET PO SCH (10:43)
--- NOTE | 2017-07-13 13:13 | RAD ---
APPROVED REPORT Test Type: Pharmacological Stress Nurse/Tech: teena wilhelm Test Indications: chest pain Cardiac History: HTN, HIGH CHOLESTEROL, SEE EHR Medications: SEE EHR Medical History: DIABETES, SEE EHR Resting ECG: SR Resting Heart Rate: 67 bpm Resting Blood Pressure: 104/66mmHg Pretest Chest Pain: No chest pain Nurse/Tech Notes LUNG SOUNDS CLEAR, S1S2 WNL. Consent: The procedure was explained to the patient in lay terms. Informed consent was witnessed. Praful eout was entered into [facility]. History and Stress Test performed by KAILASH Gilbert Pharm. Details Pharmacologic stress testing was performed using 0.4mg per 5ml of regadenoson given intravenously ove r 7-10 seconds. Stress Symptoms HEADACHE. POST EXERCISE Reason for Termination: Infusion complete Max HR: 101 bpm Max Blood Pressure: 113/58mmHg Chest Pain: No. Arrhythmia: No. ST Change: No. INTERPRETATION Stress EKG Conclusion: The resting EKG shows a sinus rhythm with mild nonspecific ST segment changes. The stress EKG shows no significant changes from baseline. No EKG evidence of stressed induced ischemia. Imaging Protocol IMAGE PROTOCOL: Rest Tc-99m/stress Tc-99m 2 days Rest: Stress: Viability: Radiopharm.Tc99m [id number] Sestamibi Dbgn11fGx 33.8mCi Duration 10min. 10min. Img Date 07/12/2017 07/13/2017 Inj-Img [id number]. 60min. Rest Admin Site:IV - Left HandAdministrator:LARRY Kwon, ARRT (R)(N) Stress Admin Site: IV - Left HandAdministrator: KAILASH Gilbert STRESS DATA End Diast. Vol.104.0mlAv. Heart Rate68.0bpm End Syst. Vol.31.0mlCO Index BSA0.0L/min Myocardial Kyye380.0gEject. Matyxcru71.0% Stress Rates Pk. Fill Rate2.67EDV/secLVtime Pk. Fill 141.40msec Pk. Empty Rate3.35ESV/secLVtime Pk. Ifjmw500.60msec 10/07 Pk. Fill1.51EDV/sec Stress Scores Regional WT0.00Summed WT3.00 Regional WM0.00Summed WM4.00 LV Perfusion The stress scans show an anterior wall defect. Rest scans showed no significant defects. Nuclear imaging consistent with an area of reversible ischemia in the anterior wall. Wall Motion Left ventricular systolic function is normal with an ejection fraction of 70%. LV Perf. Quant 17 Seg. SSS3.00 17 Seg. SRS0.00 17 Seg. SDS3.00 Stress Defect Extent (% LAD)3.80Rest Defect Extent (% LAD)0.00Rev. Defect Extent (% LAD)3.80 Stress Defect Extent (% LCX) 32.50Rest Defect Extent (% LCX)13.80Rev. Defect Extent (% LCX)31.30 Stress Defect Extent (% RCA)0.00Rest Defect Extent (% RCA)0.00Rev. Defect Extent (% RCA)0.00 Stress Defect Extent (% LEILA)8.30Rest Defect Extent (% LEILA)2.40Rev. Defect Extent (% LEILA)8.00 Conclusion 1. No EKG evidence of stress-induced ischemia. 2. Nuclear imaging shows an area of reversible ischemia in the anterior wall. 3. Normal left ventricular systolic function with an ejection fraction of 70%. 4. Moderate to moderately high risk Lexiscan stress test.
[2017-07-13] MEDS ORDERED: LIDOCAINE 2% 20 ML VIAL. ONE (16:17)
[2017-07-13] MEDS ORDERED: IODIXANOL 320 MG/ML 100 ML VIAL. ONE (16:17)
[2017-07-13] MEDS ORDERED: fentaNYL PF VIAL 100 MCG/2 ML VIAL ONE (16:45)
[2017-07-13] MEDS ORDERED: VERAPAMIL 5 MG/2 ML VIAL. ONE (16:46)
[2017-07-13] MEDS ORDERED: NITROGLYCERIN 200 MCG/2 ML SYRINGE FOR CATH/VASC LAB. ONE (16:46)
[2017-07-13] MEDS ORDERED: MIDAZOLAM HCL/PF 2 MG/2 ML VIAL. ONE (16:46)
[2017-07-13] MEDS ORDERED: HEPARIN for IV BOLUS 10,000 UNIT/10 ML VIAL. ONE (16:46)
[2017-07-13] MEDS ORDERED: IOHEXOL 300 MG/ML 100ML VIAL. IART ONE (17:00)
[2017-07-13] MEDS ORDERED: NITROGLYCERIN 200 MCG/2 ML SYRINGE FOR CATH/VASC LAB. IART ONE (17:00)
[2017-07-13] MEDS ORDERED: MIDAZOLAM HCL/PF 2 MG/2 ML VIAL. IV ONE (17:00)
[2017-07-13] MEDS ORDERED: VERAPAMIL 5 MG/2 ML VIAL. IART ONE (17:00)
[2017-07-13] MEDS ORDERED: HEPARIN for IV BOLUS 10,000 UNIT/10 ML VIAL. IART ONE (17:00)
[2017-07-13] MEDS ORDERED: LIDOCAINE 2% 20 ML VIAL. IJ ONE (17:00)
[2017-07-13] MEDS ORDERED: fentaNYL PF VIAL 100 MCG/2 ML VIAL IV ONE (17:00)
[2017-07-13] MEDS ORDERED: ONDANSETRON PF 4 MG/2 ML VIAL. IV PRN (18:00)
--- NOTE | 2017-07-14 11:59 | CARD ---
APPROVED REPORT Procedure(s) performed: Right transradial approach Left Heart Catheterization, Coronary angiography, Left ventriculography Moderate Sedation: 26 Minutes HISTORY The patient is a 41 year-old female with a history of : hypertension, family history of premature CAD . INDICATION The indication(s) include : positive stress test. PROCEDURE NARRATIVE The patient was brought electively to the cardiac catheterization lab. A timeout was performed confi rming the patient's name, date of , procedure, and site of procedure. All necessary personnel w ere wearing the appropriate protective equipment and radiation monitor devices. After explaining the risks and benefits of the procedure and alternatives, informed consent was obtained. (See nursing no myriam for medications administered). The right wrist was sterilely prepped and draped in the usual fas hion. The right wrist was infiltrated with 1 mL of 2% lidocaine for subcutaneous anesthesia. A 6 Fr ench Terumo glide sheath was inserted into the right radial artery without difficulty. Right and lef t coronary angiography was performed using a 6Fr TIG 4.0 catheter. Left ventricular end diastolic pr essure was obtained with a pigtail catheter and pullback was performed after left ventriculography. All catheter exchanges and advancements were performed over a guidewire. At case completion the righ t radial sheath was removed and a Terumo radial band was applied with 13 ml of air. The patient tole rated the procedure well and there were no immediate complications. HEMODYNAMICS: LVEDP 25 mm Hg No gradient on LV to aortic pullback. LEFT VENTRICULOGRAM: EF 55% Anterobasal: Normal. Anterolateral: Normal Apical: Normal Diaphragmatic: Normal Posterobasal: Normal CORONARY ANGIOGRAPHY: LM is a large caliber vessel with normal angiographic appearance. LAD is a large caliber vessel with normal angiographic appearance. D1 is a small caliber vessel with normal angiographic appearance. Ramus is a large caliber vessel with normal angiographic appearance. LCx is a very small caliber non-dominant vessel with normal angiographic appearance. RCA is a large caliber dominant vessel with normal angiographic appearance. RPDA and RPL are moderate caliber vessels with normal angiographic appearance. Conclusion 1. Normal angiographic appearance of the coronary arteries. 2. Normal LV function. EF 55% Recommendations Aggressive Medical Therapy
--- NOTE | 2017-07-15 09:57 | PDOC3 ---
Discharge Summary* Date of Admission: Jul 12, 2017 Date of Discharge: Jul 13, 2017 Admitting Diagnosis Chest Pain Problems: Final Diagnosis Chest pain- non cardiac, likely myofascial/chest wall pain, HLD, Prediabetes, PCOS, HTN, GERD, Anemia, OBDULIA CONSULTS Cardiology Procedures CXR- WNL Heart Catheterization- no CAD, LVEF 55% Brief Hospital Course Pt is a 41yo AAF admitted for chest pain 1)Chest pain- non cardiac, likely 2/2 myofascial/chest wall pain. Normal troponin, normal EKG. Stress test was moderate risk so heart catheterization was performed which showed no CAD. Cardiology was following. 2)HLD- pt normally on Simvastatin 20mg, was receiving Atorvastatin 10mg during hospitalization. 3)Prediabetes- stable. Likely diabetic as HbA1C is ranging 6.2-6.3 and is on Metformin for PCOS. 4)PCOS- Metformin held during hospitalization 5)HTN- well controlled with Spironolactone 50mg BID and Norvasc 5mg 6)GERD- pt continued on Pantoprazole 40mg 7)Anemia- Hb improved from last labs drawn in clinic 8)OBDULIA Disposition/Orders: D/C to Home CONDITION AT DISCHARGE: Improved, Stable Diet: Cardiac Scheduled Amlodipine Besylate (Amlodipine Besylate), 5 MG PO DAILY, (Reported) Fluticasone Propionate (Fluticasone Propionate Nasal [place]), 2 SPRAYS ALEKSEY DAILY, (Reported) Gabapentin (Gabapentin), 300 MG PO TID, (Reported) Metformin Hcl (Metformin Hcl), 500 MG PO BID, (Reported) Omeprazole (Omeprazole), 40 MG PO DAILY, (Reported) Simvastatin (Simvastatin), 20 MG PO QHS, (Reported) Spironolactone (Spironolactone), 50 MG PO BID, (Reported) Topiramate (Topiramate), 50 MG PO BID, (Reported) Scheduled PRN Diclofenac Sodium (Diclofenac Sodium), 25 MG PO PRN QID PRN for PAIN, (Reported) Sumatriptan Succinate (Sumatriptan Succinate), 50 MG PO PRN PRN for MIGRAINE HEADACHE, (Reported) Discontinued Medications Furosemide (Furosemide), 10 MG PO DAILY, (Reported) Naproxen (Naproxen), 500 MG PO PRN DAILY PRN for PAIN, (Reported) Norgestimate-Ethinyl Estradiol (Sprintec), 1 EACH PO DAILY, (Reported) Sertraline Hcl (Zoloft), 100 MG PO DAILY, (Reported) PCP Follow up with Dr. Lu in 10-14 days Time Spent Total time spent with patient [] minutes for coordination of care, counseling, and education. MACKENZIE LU MD Jul 15, 2017 09:57
== END 2017-07-13 21:27 | disposition home or self-care (01) | DRG 287 ==
LOC: ER 06:12 → 6 SOUTH 08:20 → 2 SOUTH 07-13 17:26
PROVIDERS: ADMIT Family Medicine; ATTEND Family Medicine
PROC: B2111ZZ Fluoroscopy of Multiple Coronary Arteries using Low Osmolar Contrast (ICD-10-PCS; principal; 2017-07-13)
PROC: B2151ZZ Fluoroscopy of Left Heart using Low Osmolar Contrast (ICD-10-PCS; 2017-07-13)
PROC: 4A023N7 Measurement of Cardiac Sampling and Pressure, Left Heart, Percutaneous Approach (ICD-10-PCS; 2017-07-13)
PROC: 5A09357 Assistance with Respiratory Ventilation, Less than 24 Consecutive Hours, Continuous Positive Airway Pressure (ICD-10-PCS; 2017-07-13)
DX: R07.9 Chest pain, unspecified (principal); Z68.42 Body mass index [BMI] 45.0-49.9, adult; I10 Essential (primary) hypertension; D64.9 Anemia, unspecified; E11.9 Type 2 diabetes mellitus without complications; E28.2 Polycystic ovarian syndrome; G47.33 Obstructive sleep apnea (adult) (pediatric); E66.9 Obesity, unspecified; E78.00 Pure hypercholesterolemia, unspecified; J45.909 Unspecified asthma, uncomplicated; K21.9 Gastro-esophageal reflux disease without esophagitis; Z82.49 Family history of ischemic heart disease and other diseases of the circulatory system; Z83.3 Family history of diabetes mellitus; E66.01 Morbid (severe) obesity due to excess calories; G43.909 Migraine, unspecified, not intractable, without status migrainosus; Z90.49 Acquired absence of other specified parts of digestive tract; Z90.710 Acquired absence of both cervix and uterus; Z88.5 Allergy status to narcotic agent; Z88.8 Allergy status to other drugs, medicaments and biological substances; M79.1 Myalgia
CPT/HCPCS: 36415; 71010; 78452; 80048; 80053; 80076; 80307; 81001; 82553; 82962; 83036; 83690; 83735; 83880; 84484; 84703; 85025; 85610; 90686; 93005; 93017; 93458; 96374; 96375; 96376; 99152; 99153; A9500; C1769; C1892; J1644; J1815; J2250; J2270; J2405; J2785; J3010; J3360; J3490; Q0163; Q9967; 99285-25; G0479; J2001

== ENCOUNTER 2017-08-30 12:26 | Emergency (ER) | payer OTHER ==
[~2017-08-30] VITALS: Ht 162.6 cm; Wt 121.6 kg
[~2017-08-30 12:26] MED LIST changes: +AMLO5TAB2 PO; +DICL25TA PO; +FLUT16SP NAS; +GABA300C8 PO; +METF500T4 PO; +OMEP40CA5 PO; +SIMV20TA3 PO; +SPIR50TA2 PO; +SUMA50TA4 PO; +TOPI50TA8 PO
[2017-08-30 12:59] VITALS: BP 142/89
[2017-08-30] MEDS ORDERED: ORPH100T PO (13:33)
[2017-08-30] MEDS ORDERED: METH4TAB2 PO (13:33)
--- NOTE | 2017-08-30 13:33 | PHYS DOC ---
Past Medical History Past Medical History: Anxiety, Hypertension, Other Additional Past Medical Histor: PCOS Past Surgical History: Cholecystectomy, Hysterectomy Alcohol Use: Occasionally Drug Use: None Adult General Chief Complaint Chief Complaint: BACK PAIN - NO INJURY HPI HPI Patient is a 41 year old female who presents with acute on chronic back pain. She reports lower back pain for months to years, not precipitated by injury or fall. She states pain acutely worsened this morning which she noticed when she got out of bed. She reports pain in her lower back radiating to her left leg, worse with movement and walking. Denies fevers or chills, abdominal pain, bowel or bladder incontinence or retention, dysuria or hematuria, saddle anesthesia, extremity numbness or weakness. No recent trauma. She has Flexeril at home prescribed by her primary care physician which did not help with her pain today. She has never had back surgery and has not had MRI previously for her chronic back pain. PCP is Dr. Lu. Review of Systems Review of Systems Constitutional: Denies fever or chills HENT: Denies nasal congestion or sore throat Respiratory: Denies cough or shortness of breath Cardiovascular: Denies chest pain GI: Denies abdominal pain, nausea, vomiting : Denies dysuria or hematuria Musculoskeletal: Reports back pain Integument: Denies rash Neurologic: Denies headache, focal weakness or sensory changes All other systems were reviewed and found to be within normal limits, except as documented in this note. Allergies Allergies Allergies Coded Allergies Type Severity Reaction Last Updated Verified AL Inhibitors Allergy Severe COUGH AND NUMBNESS IN ARMS 05/10/15 No hydrocodone Allergy Intermediate ITCHING AND NAUSEA 05/10/15 No Physical Exam Physical Exam Constitutional: Well developed, well nourished, no acute distress, non-toxic appearance. HENT: Normocephalic, atraumatic, bilateral external ears normal, oropharynx moist, nose normal. Eyes: conjunctiva normal, no discharge. Cardiovascular: RRR, no murmurs, no edema. Lungs & Thorax: LCTAB, no wheezing, no respiratory distress. Abdomen: soft, nontender, nondistended. Skin: Warm, dry, no erythema, no rash. Back: L4-L5 spinal tenderness without step offs, no thoracic or cervical spine tenderness, no CVA tenderness, pain increases with right leg straight leg raise. Extremities: No tenderness, no edema. Neurologic: Alert and oriented X 3, symmetric strength/sensation to lower extremities, distal pulses palpable to bilateral lower extremities. Psychologic: Affect normal, judgement normal, mood normal. Current Patient Data Vital Signs Vital Signs Date Time Temp Pulse Resp B/P (MAP) Pulse Ox O2 Delivery O2 Flow Rate FiO2 08/30/17 12:59 98.3 87 18 142/89 (106) 98 Room Air 98.3 EKG EKG [] Radiology/Procedures Radiology/Procedures [] Course & Med Decision Making Course & Med Decision Making Pertinent Labs and Imaging studies reviewed. (See chart for details) The patient presents with acute on chronic back pain. Recommend rest without complete bedrest, application of heat, gentle stretches, ibuprofen, will give prescription for Norflex as she doesn't experience relief with Flexeril, and will also try Medrol Dosepak as she states she doesn't tolerate NSAIDs or tramadol well. Follow-up with primary care physician if not improving in one to 2 weeks; may need MRI for further evaluation. Return to the emergency department for symptoms of cauda equina syndrome or otherwise worsening condition. The patient is discharged home in stable condition. [] Dragon Disclaimer Dragon Disclaimer This electronic medical record was generated, in whole or in part, using a voice recognition dictation system. Departure Departure Impression: Primary Impression: Back pain Additional Impression: Sciatica Disposition: 01 HOME, SELF-CARE Condition: STABLE Referrals: MACKENZIE LU MD (PCP) Patient Instructions: Back Pain, Adult, [id number] Additional Instructions: You were seen in the emergency department today for back pain. As we discussed, try taking 400-600 mg of ibuprofen every 8 hours. This maybe easier on your stomach. Please take prescribed medications. Apply a heating pad & do gentle stretches. Follow up with Dr. Lu if not improving in 1-2 weeks; you may need an MRI at that time. Come back for loss of control of bowels or bladder, numbness in groin, numbness or weakness in legs, otherwise worsening condition. Scripts Orphenadrine Citrate (ORPHENADRINE CITRATE) 100 Mg Tablet.er 1 TAB PO BID Y for MUSCLE SPASMS, #15 TAB 1 Refill Prov: ZACK MERAZ MD 08/30/17 Methylprednisolone (MEDROL) 4 Mg Tab.ds.pk 1 PKG PO UD, #1 PKG Prov: ZACK MERAZ MD 08/30/17 Problem Qualifiers ZACK MERAZ MD Aug 30, 2017 13:33
== END 2017-08-30 13:52 | disposition home or self-care (01) ==
LOC: ER 12:26
DX: M54.42 Lumbago with sciatica, left side (principal); M54.41 Lumbago with sciatica, right side; G89.29 Other chronic pain; E28.2 Polycystic ovarian syndrome; F41.9 Anxiety disorder, unspecified; I10 Essential (primary) hypertension; Z90.49 Acquired absence of other specified parts of digestive tract; Z90.710 Acquired absence of both cervix and uterus; Z88.5 Allergy status to narcotic agent; Z88.8 Allergy status to other drugs, medicaments and biological substances
CPT/HCPCS: 99283

== ENCOUNTER → 2017-09-24 | Outpatient (CLI) | payer OTHER ==
[2017-08-30 12:59] VITALS: BP 142/89
[~2017-09-24] MED LIST changes: +METH4TAB2 PO; +ORPH100T PO
--- NOTE | 2017-09-24 09:51 | RAD ---
Examination: MRI of the left knee without contrast HISTORY: History of gait instability, generalized left knee pain for 2 weeks COMPARISON: None available TECHNIQUE: Multiplanar, multisequence MR imaging of the left knee was performed without contrast FINDINGS: The anterior cruciate ligament, posterior cruciate ligament appear intact The medial meniscus, appears intact. There is minimal fraying of the free age of the lateral meniscus body.The medial collateral ligament is intact. The lateral collateral ligamentous complex including the fibular collateral ligament, biceps femoris tendon, popliteus tendon appear intact. The extensor mechanism is intact. Trace knee joint effusion. The medial, lateral retinaculum appear intact. There is minimal fraying of cartilage in the lateral femoral compartment. The cartilage in the medial, lateral compartment appear intact. IMPRESSION: 1. Minimal knee joint effusion. 2. Minimal free edge fraying of the body of the lateral meniscus. 2. Grade I chondromalacia patellofemoral compartment. Electronically signed by: Franky Todd MD (09/24/2017 9:48 AM) [facility]
== END | disposition home or self-care (01) ==
LOC: MRI 08:20
PROVIDERS: ATTEND Family Medicine
DX: M25.362 Other instability, left knee (principal); M94.262 Chondromalacia, left knee; M25.462 Effusion, left knee
CPT/HCPCS: 73721

== ENCOUNTER → 2018-10-19 | Outpatient (CLI) | payer MEDICAID ==
[~2018-10-19] MED LIST changes: -AMLO5TAB2 PO; +AMLO5TAB7 PO; +CYCL5TAB PO; +DULO60CA6 PO; +GABA300C18 PO; -GABA300C8 PO; +METF500T16 PO; -METF500T4 PO; +NAPR-514 PO; -NAPR500T4 PO; +PREG150C PO; -SPIR50TA2 PO; +SPIR50TA4 PO
--- NOTE | 2018-10-19 11:54 | PAIN ---
DATE OF SERVICE: 10/19/2018 INITIAL CONSULTATION FOR PAIN CLINIC CHIEF COMPLAINT: 1. Bilateral wrist and hand pain. 2. Low back pain and bilateral lower extremity pain. HISTORY OF PRESENT ILLNESS: The patient is a 42-year-old female who presents with history of pain for about 1 year increasing, has had pain for many years with a diagnosis of fibromyalgia by her report with pain increasing mostly in the carpal tunnel area. She has been diagnosed with carpal tunnel from EMG testing through her neurologist as well as had physical therapy. She has had water therapy and also has had cortisone injections in the carpal tunnels without significant improvement, with still significant pain radiating to the thumb and first, second and third fingers, greater on the right than the left. The patient reports it is worse at night and also pain in the elbows, back, knees hurt and generalized muscular pain, shoulders, neck, upper back, mid back, low back, hips, knees and calves. The patient it awakens her from sleep about twice at night, does not affect her bowel or bladder control but does affect her ability to walk. Occasionally, she uses a walker or wheelchair but does not have one with her today. She has had again cortisone injections in the carpal tunnels through Orthopedics without significant improvement. Physical therapy has been done again without significant long lasting improvement. The patient is taking Cymbalta, Flexeril and Lyrica and none of which are decreasing the pain significantly. The patient rates her disability rate from 0-10, 10 being the worst, is a 10 with family and home responsibilities, recreation, occupation, self-care and life support activities, 8 with sexual behavior and social activity. The patient reports the pain is constant, throbbing, shooting, radiating, changes during the day, worse with activities, standing, walking, better with sitting or lying down but again awakens her from sleep, fairly significantly. The patient reports she is currently on disability and it is related to the current pain issue. PAST MEDICAL HISTORY: Significant for type 2 diabetes, hypertension, obesity, gastroesophageal reflux, headaches, fibromyalgia and multiple joint pains. PAST SURGICAL HISTORY: Previous surgeries include laparoscopic cholecystectomy and hysterectomy. CURRENT MEDICATIONS: Include topiramate, metformin, amlodipine, omeprazole, fluticasone, diclofenac, spironolactone, simvastatin, Lyrica, cyclobenzaprine and Cymbalta. ALLERGIES: The patient is allergic to CODEINE, which causes itching; TRAMADOL and AL INHIBITORS. FAMILY HISTORY: Significant for fibromyalgia, hypertension and diabetes. SOCIAL HISTORY: The patient drinks about 2 alcoholic drinks a month on average; does not smoke and does not use any illegal, illicit or recreational drugs. She is single, lives locally in [place], [place], has one child, living at home with her. REVIEW OF SYSTEMS: The patient's review of systems is positive for those items mentioned in history of present illness. All systems reviewed and otherwise negative. It is complete, full and well documented on the patient's chart. PHYSICAL EXAMINATION: VITAL SIGNS: Today, the patient's blood pressure is 135/82, pulse 96, respirations 18 and temperature is 98.3 degrees Fahrenheit. Height is 5 feet 4 inches and weight is 294 pounds. GENERAL: The patient is awake, alert, oriented, appropriate and very pleasant demeanor. HEENT: Head shows normocephalic and atraumatic. Extraocular movements are intact and symmetrical. Oral cavity: Mucous membranes moist and pink. Dentition is intact. NECK: Shows anterior throat supple without palpable lymphadenopathy noted. Swallow reflex symmetrical. CHEST: Shows normal with inspection. Breath sounds clear to auscultation bilaterally. HEART: Shows S1 and S2 clear. No murmurs auscultated. ABDOMEN: Soft, obese, nontender and nondistended. No palpable organomegaly is noted. No rebound or guarding demonstrated. BACK: Shows spine grossly in the midline. Slight exaggeration of the thoracic kyphosis, normal cervical lordotic curvature and lumbar lordotic curvature. No previous scars, bruises or rashes are noted. The patient's paraspinous muscle shows symmetrical but with palpation shows some moderate tenderness throughout the cervical paraspinous muscles, thoracic paraspinous musculature as well as the lumbar paraspinous musculature symmetrically but more tender in the lumbar distribution in the lower lumbar distribution without radiation, without specific trigger points but diffuse tenderness throughout. The patient does show good rotational motion of the lumbar spine, both laterally as well as extension and flexion without significant difficulty. EXTREMITIES: The patient's extremities show upper extremity deep tendon reflexes 2+ in the biceps and triceps tendons. Motor exam is strong with lumber cutter strength rated at 5/5 as is bicep and tricep flexion. Lower extremities show 1+ in the patellar and tendo-calcaneus tendons. Motor exam is 5/5 with dorsiflexion and extension. Peripheral pulses are 2+ radial, 1+ posterior tibial. The patient is able to reproduce with pressure over the median nerve on the right side, does have tingling in the thumb and first and second fingers, not reproduced on the left side with median nerve compression. Peripheral pulses again 2+ bilaterally in the radial distribution. No discoloration is noted. The patient's skin shows warm and dry, good turgor. No edema. No sores, rashes or bruising. IMPRESSION: 1. This is a 42-year-old female with approximately 1-year history of increasing pain as described with bilateral carpal tunnel syndrome from EMG testing with no significant improvement after physical therapy, water therapy and cortisone injection in a carpal tunnel through Orthopedics. 2. Hypertension. 3. Diabetes. 4. Obesity. PLAN: Options were discussed with the patient including conservative medical management, continued physical therapies, interventional techniques. She would like to avoid any further interventional techniques as she has had cortisone injections in the carpal tunnels without significant improvement. Has done physical therapy as well as water therapy without significant improvement as well and we discussed medication strategies and we will increase her Lyrica to 300 mg twice daily instead of 150. Also, the patient was given samples of Pennsaid ointment for the carpal tunnels as well as her elbows with some significant pain in her knees. The patient will follow up at this time on an as needed basis. Follow up with the Orthopedics if not significantly improved for potential carpal tunnel release. TOMA DREW MD DR: HERMAN/makayla JOB#: [id number] / [id number] MACKENZIE Christine MD
== END | disposition home or self-care (01) ==
LOC: PNCL 08:42
PROVIDERS: ATTEND Anesthesiology
DX: G56.03 Carpal tunnel syndrome, bilateral upper limbs (principal); G56.22 Lesion of ulnar nerve, left upper limb; M79.7 Fibromyalgia; I10 Essential (primary) hypertension; E11.9 Type 2 diabetes mellitus without complications; E66.9 Obesity, unspecified; M54.5 Low back pain; M79.604 Pain in right leg; M79.605 Pain in left leg; K21.9 Gastro-esophageal reflux disease without esophagitis; Z88.5 Allergy status to narcotic agent
CPT/HCPCS: G0463

== ENCOUNTER → 2019-05-30 | Outpatient (CLI) | payer MEDICAID ==
[~2019-05-30] MED LIST changes: +AMLO5TAB10 PO; -AMLO5TAB7 PO
--- NOTE | 2019-05-30 08:40 | CARD ---
MR#: [id number] Date of Study: 05/30/2019 Ordering Physician: RAEGAN MCCRACKEN, Referring Physician: RAEGAN MCCRACKEN Tech: Jolly Rogers RDCS APPROVED REPORT EXAM: Two-dimensional and M-mode echocardiogram with Doppler and color Doppler. Other Information Quality : Technically LimitedHR: 79bpm Rhythm : NSRTechnically limited study due to body habitus. INDICATION Murmur 2D DIMENSIONS RVDd3.0 (2.9-3.5cm)Left Atrium(2D)2.9 (1.6-4.0cm) IVSd1.0 (0.7-1.1cm)Aortic Root(2D)2.8 (2.0-3.7cm) LVDd4.3 (3.9-5.9cm)LVOT Diameter1.8 (1.8-2.4cm) PWd1.0 (0.7-1.1cm)LVDs2.9 (2.5-4.0cm) FS (%) 33.5 %SV51.8 ml LVEF(%)62.5 (>50%) M-Mode DIMENSIONS Left Atrium(MM)2.78 (2.5-4.0cm)Aortic Root2.52 (2.2-3.7cm) Aortic Valve AoV Peak Simone.167.8cm/sAoV VTI30.5cm AO Peak GR.11.3mmHgLVOT Peak Simone.90.0cm/s AO Mean GR.6mmHgAVA (VMAX)1.30cm2 LUIS (VTI)1.60cm2 Mitral Valve MV E Dswjkcqc197.6cm/sMV DECEL GJOI518vk MV A Zfssddyx22.9cm/sE/A Ratio1.3 Pulmonary Valve PV Peak Asyqweqs763.8cm/s Tricuspid Valve TR P. Dmducwxu846br/sRAP OBFZIOEC6jqMf TR Peak Gr.12nqKzFEVW15maPw LEFT VENTRICLE The left ventricle is normal size. There is normal left ventricular wall thickness. The left ventricu lar systolic function is normal and the ejection fraction is within normal range. The Ejection Fracti on is 60-65%. There is normal LV segmental wall motion. The left ventricular diastolic function and f illing is normal for age. RIGHT VENTRICLE The right ventricle is normal size. There is normal right ventricular wall thickness. The right ventr icular systolic function is normal. ATRIA The left atrium size is normal. The right atrium size is normal. The interatrial septum is intact wit h no evidence for an atrial septal defect or patent foramen ovale as noted on 2-D or Doppler imaging. AORTIC VALVE The aortic valve is normal in structure and function. The aortic valve is trileaflet. Doppler and Col or Flow revealed no significant aortic regurgitation. There is no significant aortic valvular stenosi s. MITRAL VALVE The mitral valve is normal in structure and function. There is no evidence of mitral valve prolapse. There is no mitral valve stenosis. Doppler and Color-flow revealed trace mitral regurgitation. TRICUSPID VALVE The tricuspid valve is normal in structure and function. Doppler and Color Flow revealed trace tricus pid regurgitation. The PA pressure was estimated at 25 mmHg. There is no tricuspid valve prolapse or vegetation. There is no tricuspid valve stenosis. PULMONIC VALVE The pulmonic valve is not well visualized. GREAT VESSELS The aortic root is normal in size. The ascending aorta is normal in size. The IVC is normal in size a nd collapses >50% with inspiration. PERICARDIAL EFFUSION There is no evidence of significant pericardial effusion. Critical Notification Critical Value: No <Conclusion> The left ventricular systolic function is normal and the ejection fraction is within normal range. Th e Ejection Fraction is 60-65%. There is normal LV segmental wall motion. Signed by : Frank Cole, Electronically Approved : 05/30/2019 08:40:26
--- NOTE | 2019-05-30 11:23 | RAD ---
MR#: [id number] Date of Study: 05/30/2019 Ordering Physician: RAEGAN MCCRACKEN, Referring Physician: RAEGAN MCCRACKEN, Tech: Carter Eli MBA, RDMS, RVT, RDCS, RTR APPROVED REPORT Patient Location : OUT-PATIENT Indications Lower Extremity Edema : Bilateral Findings The right and left saphenofemoral junctions are free of any soft significant thrombus. The right grea t saphenous vein measures 7 mm and the left great saphenous vein measures 8 mm. The greater saphenous veins do not demonstrate any reflux. The bilateral lesser saphenous veins do not show any evidence of reflux. Critical Notification Critical Value: No <Conclusion> 1. Negative for reflux in the bilateral greater and lesser saphenous veins. Signed by : Frank Cole, Electronically Approved : 05/30/2019 11:23:25
== END | disposition home or self-care (01) ==
LOC: ECHO 07:25
PROVIDERS: ATTEND Internal Medicine Cardiovascular Disease
DX: R60.0 Localized edema (principal); R01.1 Cardiac murmur, unspecified
CPT/HCPCS: 93306; 93970

== ENCOUNTER → 2019-09-15 | Outpatient (CLI) | payer MEDICAID ==
[~2019-09-15] MED LIST changes: +OMEP40CA45 PO; -OMEP40CA5 PO; +SIMV20TA18 PO; -SIMV20TA3 PO
--- NOTE | 2019-09-15 16:04 | KCIC ---
MR of the left knee HISTORY: Left knee pain. History of osteochondroma of the proximal tibial shaft. Pain for over one year. TECHNIQUE: Routine multiplanar sequences are obtained. FINDINGS: No evidence of medial meniscal tear. No evidence of lateral meniscal tear. Anterior and posterior cruciate ligaments are intact. Medial collateral ligament is intact. Iliotibial band unremarkable. Fibular collateral ligament, biceps femoris tendon and popliteus tendon attachment are intact. Extensor mechanism intact. No acute retinacular tear. Small joint effusion. No significant Orellana's cyst. Moderate chondromalacia of the patella and to lesser extent femoral trochlea. Degenerative type subchondral cystic change at the posterior lateral tibial plateau. No acute fracture or aggressive bone destruction. No significant Orellana's cyst. IMPRESSION: 1. No evidence of meniscal tear or internal derangement. 2. Degenerative changes. Electronically signed by: Dirk Paz MD (09/15/2019 4:01 PM) [facility]
== END | disposition home or self-care (01) ==
LOC: KCIC MRI 12:55
PROVIDERS: ATTEND Orthopaedic Surgery Sports Medicine
DX: M22.42 Chondromalacia patellae, left knee (principal); M17.12 Unilateral primary osteoarthritis, left knee; M25.462 Effusion, left knee
CPT/HCPCS: 73721

== ENCOUNTER → 2020-07-13 | Outpatient (CLI) | payer MEDICAID ==
[~2020-07-13] MED LIST changes: +REGADENOSON 0.4 MG/5 ML DISP.SYRIN. IV ONE
--- NOTE | 2020-07-13 15:48 | RAD ---
MR#: [id number] Date of Study: 07/12/2020 Ordering Physician: RAEGAN MCCRACKEN, Referring Physician: ANA VILLATORO Tech: LARRY Kwon, ARRT (R) (N) APPROVED REPORT Test Type: Pharmacological Stress Nurse/Tech: Irene Mir R.N. Test Indications: KRISHNAMURTHY Cardiac History: Diabetes, Hypertension Medications: See Electronic Medical Record Medical History: See Electronic Medical Record Resting ECG: NSR Resting Heart Rate: 76 bpm Resting Blood Pressure: 151/77mmHg Pretest Chest Pain: No chest pain Nurse/Tech Notes S1S2, lungs sound clear Consent: The procedure was explained to the patient in lay terms. Informed consent was witnessed. Praful eout was entered into [employer]. History and Stress Test performed by Irene Mir R.N. Pharm. Details Pharmacologic stress testing was performed using 0.4mg per 5ml of regadenoson given intravenously ove r 7-10 seconds. Stress Symptoms Dyspnea POST EXERCISE Reason for Termination: Infusion complete Target HR: 151 Max HR: 102 bpm Max Blood Pressure: 154/71mmHg Blood Pressure response to exercise: Normal blood pressure response during stress. Chest Pain: No. Arrhythmia: No. ST Change: No. INTERPRETATION Stress EKG Conclusion: Baseline EKG showed sinus rhythm. No ischemic changes at peak stress. No arr hythmias. Imaging Protocol IMAGE PROTOCOL: Rest Tc-99m/stress Tc-99m 2 days Rest: Stress: Viability: Radiopharm.Tc99m GuastfzozXo35q Sestamibi Spfq78vLi 33mCi Img Date 07/12/2020 07/13/2020 Inj-Img Dvsu19udf. 60min. Rest Admin Site:IV - Left HandAdministrator:Franc Harrington RT (R)(N) Stress Admin Site: IV - Left HandAdministrator: RT Lexie (R)(N) STRESS DATA End Diast. Vol.106.0mlAv. Heart Rate78.0bpm End Syst. Vol.19.0mlCO Index BSA0.0L/min Myocardial Vlwa639.0gEject. Frzipgvx82.0% Stress Rates Pk. Fill Rate2.95EDV/secLVtime Pk. Fill 104.79msec Pk. Empty Rate4.06ESV/secLVtime Pk. Jfrfs793.49msec / Pk. Fill1.87EDV/sec Stress Scores Regional WT0.00Summed WT0.00 Regional WM0.00Summed WM0.00 Study quality was good. Left Ventricular size was Normal at Rest and Stress. Lung uptake was . Left Ventricular ejection fraction is 76%. The rest and stress images show normal perfusion, normal contraction and thickening. LV Perf. Quant 17 Seg. SSS1.00 17 Seg. SRS6.00 17 Seg. SDS0.00 Stress Defect Extent (% LAD)8.10Rest Defect Extent (% LAD)24.40Rev. Defect Extent (% LAD)8.10 Stress Defect Extent (% LCX) 11.30Rest Defect Extent (% LCX)5.00Rev. Defect Extent (% LCX)11.30 Stress Defect Extent (% RCA)0.00Rest Defect Extent (% RCA)1.10Rev. Defect Extent (% RCA)0.00 Stress Defect Extent (% LEILA)5.00Rest Defect Extent (% LEILA)12.40Rev. Defect Extent (% LEILA)5.00 Conclusion 1. Regadenoson cardioisotope stress test did not show any evidence of ischemia or infarct. 2. Normal left ventricular systolic function with ejection fraction calculated at 76%. 3. Low risk for cardiac events. Signed by : Raegan Mccracken, Electronically Approved : 07/13/2020 15:47:55
--- NOTE | 2020-07-13 15:53 | CARD ---
MR#: [id number] Date of Study: 07/13/2020 Ordering Physician: RAEGAN MCCRACKEN, Referring Physician: RAEGAN MCCRACKEN Tech: Iraida Lopez RDCS APPROVED REPORT EXAM: Two-dimensional and M-mode echocardiogram with Doppler and color Doppler. Other Information Quality : Fair INDICATION Dyspnea on Exertion 2D DIMENSIONS RVDd2.9 (2.9-3.5cm)Left Atrium(2D)3.3 (1.6-4.0cm) IVSd0.9 (0.7-1.1cm)Aortic Root(2D)2.5 (2.0-3.7cm) LVDd4.8 (3.9-5.9cm)LVOT Diameter2.0 (1.8-2.4cm) PWd1.1 (0.7-1.1cm)LVDs3.5 (2.5-4.0cm) FS (%) 27.8 %SV59.2 ml LVEF(%)55.0 (>50%) Aortic Valve AoV Peak Simone.182.5cm/sAoV VTI33.2cm AO Peak GR.13.3mmHgLVOT Peak Simone.163.0cm/s LVOT VTI 31.65cmAO Mean GR.6mmHg LUIS (VMAX)2.75eg2EWL (VTI)2.94cm2 Mitral Valve MV E Awfnxvys179.9cm/sMV DECEL EGMP474rx MV A Mhldupbt19.0cm/sE/A Ratio1.3 Tricuspid Valve TR P. Xgfkisey385hz/sRAP SZPLJSAT5rlNj TR Peak Gr.66ivGxAKGA44ewRk Pulmonary Vein S1 Habacrkg81.5cm/sD2 Xnfedsog81.9cm/s LEFT VENTRICLE The left ventricle is normal size. There is normal left ventricular wall thickness. The left ventricu lar systolic function is normal. The Ejection Fraction is 55-60%. There is normal LV segmental wall m otion. The left ventricular diastolic function and filling is normal for age. RIGHT VENTRICLE The right ventricle is normal size. The right ventricular systolic function is normal. ATRIA The left atrium size is normal. The right atrium size is normal. The interatrial septum is intact wit h no evidence for an atrial septal defect or patent foramen ovale as noted on 2-D or Doppler imaging. AORTIC VALVE The aortic valve is not well visualized but appears to be functioning normally by Doppler interrogati on. Doppler and Color Flow revealed no significant aortic regurgitation. There is no significant aort ic valvular stenosis. MITRAL VALVE The mitral valve is normal in structure and function. There is no evidence of mitral valve prolapse. There is no mitral valve stenosis. Doppler and Color-flow revealed trace mitral regurgitation. TRICUSPID VALVE The tricuspid valve is normal in structure and function. Doppler and Color Flow revealed trace tricus pid regurgitation. The PA pressure was estimated at 27 mmHg. There is no tricuspid valve stenosis. PULMONIC VALVE The pulmonic valve is not well visualized. Doppler and Color Flow revealed trace pulmonic valvular re gurgitation. There is no pulmonic valvular stenosis. GREAT VESSELS The aortic root is normal in size. The ascending aorta is normal in size. The IVC is normal in size a nd collapses >50% with inspiration. PERICARDIAL EFFUSION There is no evidence of significant pericardial effusion. Critical Notification Critical Value: No <Conclusion> The left ventricular systolic function is normal. The Ejection Fraction is 55-60%. There is normal LV segmental wall motion. Trace mitral regurgitation. Trace tricuspid regurgitation. The PA pressure was estimated at 27 mmHg. There is no evidence of significant pericardial effusion. Signed by : Raegan Mccracken, Electronically Approved : 07/13/2020 15:53:30
== END ==
LOC: ECHO 09:06
PROVIDERS: ATTEND Internal Medicine Cardiovascular Disease
DX: I10 Essential (primary) hypertension (principal); R06.00 Dyspnea, unspecified
CPT/HCPCS: 78452; 93306; A9500; J2785